=== PATIENT | female | born 1960 | race Caucasian/White ===

== ENCOUNTER 2018-11-30 15:17 | Emergency (ER) | payer OTHER ==
[2018-11-30] MEDS: KETOROLAC 30 MG INJ IM (16:06)
== END 2018-11-30 17:36 | disposition home or self-care (01) ==
LOC: FTE 17:36
DX: S33.5XXA Sprain of ligaments of lumbar spine, initial encounter (principal); W01.0XXA Fall on same level from slipping, tripping and stumbling without subsequent striking against object, initial encounter; Y92.009 Unspecified place in unspecified non-institutional (private) residence as the place of occurrence of the external cause
CPT/HCPCS: 72100; 96372; 99284-25